=== PATIENT | male | born 1970 | race Caucasian/White ===

== ENCOUNTER 2018-01-11 17:22 | Emergency (ER) | payer SELFPAY ==
[~2018-01-11] VITALS: Ht 185.4 cm; Wt 147.5 kg
[2018-01-11 17:26] VITALS: BP 168/100; PULSE 74; RESP 20; TEMP 98.9; O2SAT 99
[2018-01-11] MEDS ORDERED: ALBU6.7H INH (20:32)
[2018-01-11] MEDS ORDERED: PRED-503 PO (20:32)
[2018-01-11] MEDS ORDERED: DOXY100C PO (20:32)
--- NOTE | 2018-01-11 20:35 | PD ---
HPI Chief Complaint: Cold / Flu Symptoms Time Seen by Provider: 20:26 Travel History International Travel<30 days: No Contact w/Intl Traveler<30days: No Traveled to known affect area: No History of Present Illness HPI 47-year-old white male presents emergency Department with a four-day history of runny nose, cough, congestion, sore throat, shortness of breath, wheezing and general malaise. He states that he is in a sober living facility. History of heroin addiction. Patient states that he's been sober now for over 30 days. No nausea vomiting. No abdominal pain or diarrhea. No dysuria or frequency. Symptoms are moderate patient is a smoker. Exacerbated by cough. No alleviating factor. PFSH Past Medical History Narrative Medical History of IV drug abuse. Cardiovascular Problems: Yes (HTN) Diabetes: Yes Patient Takes Glucophage: No Hypertension: Yes Tetanus Vaccination: < 5 Years Past Surgical History Surgical History: No Previous Surgery Social History Alcohol Use: No Tobacco Use: Yes Substance Use: No Allergies-Medications (Allergen,Severity, Reaction): Coded Allergies: No Known Allergies (Unverified , 01/11/18) Reported Meds & Prescriptions Reported Meds & Active Scripts Active Proventil Hfa 6.7 GM Inh (Albuterol Sulfate) 90 Mcg/Act Aer 2 Puff INH Q4-6H PRN Deltasone (Prednisone) 20 Mg Tab 20 Mg PO BID Doxycycline Hyclate 100 Mg Cap 100 Mg PO BID 7 Days Review of Systems Except as stated in HPI: all other systems reviewed are Neg Physical Exam Narrative GENERAL: Well-developed, well-nourished in no acute distress. Nontoxic appearing. HEAD: Normocephalic, atraumatic. EYES: Pupils equal round and reactive. Extraocular motions intact. No scleral icterus. No injection or drainage. ENT: TMs clear without erythema. The external auditory canals clear. Nose: clear . Posterior pharynx is pink and moist. No tonsillar edema or exudate. Uvula midline. Airway patent. NECK: Trachea midline.Supple, nontender, moves head freely. No central bony tenderness or spasm. CARDIOVASCULAR: Regular rate and rhythm without murmurs, gallops, or rubs. RESPIRATORY: Few scattered rhonchi with occasional expiratory wheeze. GASTROINTESTINAL: Abdomen soft, non-tender, nondistended. No hepato-splenomegaly , or palpable masses. No guarding. EXTREMITIES: No clubbing, cyanosis, or edema. No joint tenderness, effusion, or edema noted. BACK: Nontender without deformity or crepitance. No flank tenderness. Data Data Last Documented VS Vital Signs Date Time Temp Pulse Resp B/P (MAP) Pulse Ox O2 Delivery O2 Flow Rate FiO2 01/11/18 17:26 98.9 74 20 168/100 (122) 99 Orders Orders Ed Discharge Order (01/11/18 20:30) Doxycycline (Vibramycin) (01/11/18 20:45) MDM Medical Decision Making Medical Screen Exam Complete: Yes Emergency Medical Condition: Yes Medical Record Reviewed: Yes Differential Diagnosis MDM: High Differential diagnoses: Pneumonia, bronchitis, URI, asthma, RAD, legionnaire's disease, SARS, ARDS, influenza, bronchiolitis, RSV,PE,CHF Narrative Course This is bronchitis. Patient's given doxycycline 100 mg by mouth Diagnosis Primary Impression: acute bronchitis Patient Instructions: General Instructions Additional Instructions: Rest. Increase fluids. Tylenol and Advil. Robitussin-DM. Doxycycline, prednisone, and albuterol. Followup with your Dr. in one week. Return to the ER for any problems. Med/Other Pt SpecificInfo: Prescription(s) given Scripts Albuterol 6.7 GM Inh (Proventil Hfa 6.7 GM Inh) 90 Mcg/Act Aer 2 PUFF INH Q4-6H Y for SHORTNESS OF BREATH, #1 INHALER 0 Refills Prov: Rivera Salazar MD 01/11/18 Prednisone (Deltasone) 20 Mg Tab 20 MG PO BID, #10 TAB 0 Refills Prov: Rivera Salazar MD 01/11/18 Doxycycline Hyclate (Doxycycline Hyclate) 100 Mg Cap 100 MG PO BID for Infection for 7 Days, #14 CAP 0 Refills Prov: Rivera Salazar MD 01/11/18 Disposition: 01 DISCHARGE HOME Condition: Stable Gary Jennings Jan 11, 2018 20:35
[2018-01-11] MEDS ORDERED: DOXYCYCLINE HYCLATE 100 MG CAP PO ONE (20:45)
[2018-01-11 20:56] VITALS: BP 154/87
== END 2018-01-11 20:58 | disposition home or self-care (01) ==
LOC: NEPK 17:22
DX: J20.9 Acute bronchitis, unspecified (principal); E11.9 Type 2 diabetes mellitus without complications; I10 Essential (primary) hypertension; F17.200 Nicotine dependence, unspecified, uncomplicated
CPT/HCPCS: 99283